=== PATIENT | male | born 1965 | race Caucasian/White ===

== ENCOUNTER 2020-02-24 07:32 | Day surgery (SDC) | payer OTHER, SELFPAY ==
[~2020-02-24] VITALS: Ht 157.5 cm; Wt 49.9 kg
[2020-02-24 11:24] VITALS: BP_SYST 122
== END 2020-02-24 10:15 | disposition home or self-care (01) ==
LOC: SMU 07:32 → SDS 07:32 → EDSEX 09:00 → EDBD 09:00 → SDS 10:15
PROVIDERS: ATTEND Internal Medicine
DX: K70.30 Alcoholic cirrhosis of liver without ascites (principal); K29.50 Unspecified chronic gastritis without bleeding; I10 Essential (primary) hypertension; Z86.718 Personal history of other venous thrombosis and embolism; Z11.59 Encounter for screening for other viral diseases
CPT/HCPCS: 36415; 43239; 87081; 88305; 88312; 88313; 99152; G0378; J7030; U0003